=== PATIENT | female | born 1955 | race Caucasian/White ===

== ENCOUNTER 2017-06-06 03:02 | Emergency (ER) | payer OTHER, SELFPAY ==
[~2017-06-06] VITALS: Ht 162.6 cm; Wt 67.0 kg
[2017-06-06 03:04] VITALS: BP 138/83
[2017-06-06] MEDS ORDERED: DIPHENHYDRAMINE 12.5MG/5ML, 10ML UDC ONE (03:27)
[2017-06-06] MEDS ORDERED: FAMOTIDINE 20 MG TABLET ONE (03:27)
[2017-06-06] MEDS ORDERED: DIPHENHYDRAMINE 12.5MG/5ML, 10ML UDC PO ONE (03:30)
[2017-06-06] MEDS ORDERED: FAMOTIDINE 20 MG TABLET PO ONE (03:30)
== END 2017-06-06 04:31 | disposition home or self-care (01) ==
LOC: ED 03:40
DX: T63.301A Toxic effect of unspecified spider venom, accidental (unintentional), initial encounter (principal); G89.11 Acute pain due to trauma; M54.2 Cervicalgia; L50.0 Allergic urticaria; Y92.89 Other specified places as the place of occurrence of the external cause
CPT/HCPCS: 99283